=== PATIENT | female | born 1935 | race Two or more races ===

== ENCOUNTER 2018-09-27 07:33 | Outpatient (CLI) | payer OTHER ==
[~2018-09-27 07:33] MED LIST: ATENOLOL50 MG; DOLOGESIC 500-1 EACH PO; LEVOTHYROXINE200 MCG; METFORMIN HCL500 MG; ORPH100T PO; PANADOL EXTRA500 MG PO; PERCOCET 5/3251 TAB PO; POLY119PG PO; PREVACID30 MG PO; SIMVASTATIN40 MG PO; SURFAK240 M1 PO; TRENTAL PO
== END 2018-09-27 07:34 | disposition home or self-care (01) ==
LOC: SONOGRAMA 07:33 → MAMO-SONO 08:15
DX: N18.3 Chronic kidney disease, stage 3 (moderate) (principal); R31.9 Hematuria, unspecified; R10.9 Unspecified abdominal pain

== ENCOUNTER 2018-11-28 07:38 | Emergency (ER) | payer OTHER ==
[~2018-11-28] VITALS: Ht 152.4 cm; Wt 51.7 kg
[2018-11-28] MEDS ORDERED: LEVOTHYROXINE25 MCG (08:03)
[2018-11-28] MEDS ORDERED: SYNTHROID50 MCG (08:04)
[2018-11-28] MEDS ORDERED: LISINOPRIL5 MG (08:05)
[2018-11-28] MEDS ORDERED: LASIX20 MG (08:06)
== END 2018-11-28 10:00 | disposition home or self-care (01) ==
LOC: ER 07:38
DX: M54.5 Low back pain (principal)

== ENCOUNTER 2020-03-07 10:03 | Emergency (ER) | payer OTHER ==
[~2020-03-07] VITALS: Ht 160 cm; Wt 52.2 kg
[~2020-03-07 10:03] MED LIST changes: +LASIX20 MG; +LEVOTHYROXINE25 MCG; +LISINOPRIL5 MG; +SYNTHROID50 MCG
== END 2020-03-07 14:31 | disposition home or self-care (01) ==
LOC: ER 10:03
DX: N39.0 Urinary tract infection, site not specified (principal)

== ENCOUNTER 2020-03-16 05:41 | Emergency (ER) | payer OTHER ==
[~2020-03-16] VITALS: Ht 160 cm; Wt 51.7 kg
== END 2020-03-16 10:30 | disposition home or self-care (01) ==
LOC: ER 05:41
DX: S20.223A Contusion of bilateral back wall of thorax, initial encounter (principal); S10.83XA Contusion of other specified part of neck, initial encounter; S00.03XA Contusion of scalp, initial encounter; W06.XXXA Fall from bed, initial encounter; Y93.89 Activity, other specified; Y92.013 Bedroom of single-family (private) house as the place of occurrence of the external cause; Y99.8 Other external cause status

== ENCOUNTER 2020-10-31 13:16 | Emergency (ER) | payer OTHER ==
[~2020-10-31] VITALS: Ht 160 cm; Wt 51.7 kg
== END 2020-10-31 19:41 | disposition home or self-care (01) ==
LOC: ER 13:16
DX: M54.5 Low back pain (principal); D69.49 Other primary thrombocytopenia

== ENCOUNTER 2021-01-26 12:34 | Emergency (ER) | payer OTHER ==
[~2021-01-26] VITALS: Ht 160 cm; Wt 51.7 kg
[2021-01-26] MEDS ORDERED: TENORMIN25 MG (12:51)
[2021-01-26] MEDS ORDERED: ZOCOR20 MG (12:52)
[2021-01-26] MEDS ORDERED: PENTOXIFYLLINE400 MG (12:54)
[2021-01-26] MEDS ORDERED: NITROFURANTOIN100 MG PO (16:48)
[2021-01-26] MEDS ORDERED: PYRIDIUM DS200 MG PO (16:48)
[2021-01-26] MEDS ORDERED: UTIX PO (16:48)
== END 2021-01-26 17:07 | disposition home or self-care (01) ==
LOC: ER 12:34
DX: N39.0 Urinary tract infection, site not specified (principal)

== ENCOUNTER 2023-05-16 07:50 | Emergency (ER) | payer OTHER ==
[~2023-05-16] VITALS: Ht 160 cm; Wt 49.4 kg
[~2023-05-16 07:50] MED LIST changes: +NITROFURANTOIN100 MG PO; +PENTOXIFYLLINE400 MG; +PYRIDIUM DS200 MG PO; +TENORMIN25 MG; +UTIX PO; +ZOCOR20 MG
[2023-05-16] MEDS ORDERED: ZESTRIL5 MG PO (08:58)
[2023-05-16 09:49] LABS: HEMATOCRIT 30.9 % (36.0-45.00); HEMOGLOBIN 10.3 g/dL (12.0-15.00); MEAN CELL VOLUME 97.6 fL (80.00-100.00); MEAN CORPUSCULAR HEMOGLOBIN 32.7 pg (27.00-32.0); MEAN CORPUSCULAR HGB CONC 33.5 g/dl (32.0-36.0); PLATELET COUNT 158 K/uL (150-450); RED BLOOD COUNT 3.16 M/uL (4.00-6.00); RED CELL DISTRIBUTION WIDTH 13.1 % (11.5-14.5)
[2023-05-16 10:17] LABS: ALBUMIN 3.5 gm/dL (3.4-5.0); BILIRUBIN TOTAL 0.23 mg/dL (0.3-1.2); CREATININE SERUM 1.64 mg/dL (0.55-1.02); GFR 29.7; POTASSIUM 5.14 mEq/L (3.5-5.1); TOTAL PROTEIN 10.5 gm/dL (6.4-8.2)
[2023-05-16 10:40] LABS: PH,URINE 6.5 (5.0-8.0); URINE APPEARANCE Clear; URINE BILIRRUBIN Negative (NEGATIVE); URINE BLOOD Negative; URINE COLOR Yellow; URINE GLUCOSE Negative (NEGATIVE); URINE LEUKOCYTE Moderate; URINE NITRATE Negative; URINE PROTEIN Negative (NEGATIVE); URINE UROBILINOGEN 0.2 E.U./dl
[2023-05-16 10:44] LABS: URINE BACTERIA 2173.3 uL (0.0-1933); URINE EPITHELIAL CELLS 5.7 uL (0.0-38.8); URINE WBC 40.8 uL (0.0-23.2)
== END 2023-05-16 13:02 | disposition home or self-care (01) ==
LOC: ER 07:51
PROVIDERS: General Practice
DX: N39.0 Urinary tract infection, site not specified (principal); Z91.041 Radiographic dye allergy status; Z88.0 Allergy status to penicillin; E11.9 Type 2 diabetes mellitus without complications; Z79.84 Long term (current) use of oral hypoglycemic drugs
CPT/HCPCS: 74240; 96365; 99284; J3490; J7042

== ENCOUNTER 2023-06-16 07:53 | Outpatient (CLI) | payer OTHER ==
[~2023-06-16 07:53] MED LIST changes: +ZESTRIL5 MG PO
== END 2023-06-16 15:17 | disposition home or self-care (01) ==
LOC: MRI 07:53
PROVIDERS: ATTEND Family Medicine
DX: R10.2 Pelvic and perineal pain (principal)
CPT/HCPCS: 72195; 74181